=== PATIENT | female | born 1960 | race Caucasian/White ===

== ENCOUNTER 2021-03-12 19:16 | Emergency (ER) | payer OTHER ==
[2021-03-12 23:12] LABS: HEMOGLOBIN 14.4 gm/dl (12.3-15.3); RED BLOOD COUNT 4.76 M/UL (4.00-5.10); WHITE BLOOD COUNT 6.5 K/UL (4.5-11.0)
== END 2021-03-13 04:00 | disposition home or self-care (01) ==
LOC: ER1 19:16
PROVIDERS: Physician Assistant
DX: H92.02 Otalgia, left ear (principal); I10 Essential (primary) hypertension; J44.9 Chronic obstructive pulmonary disease, unspecified; Z90.89 Acquired absence of other organs; Z88.0 Allergy status to penicillin
CPT/HCPCS: 70450; 83605; 85025; 85652; 86140; 99283

== ENCOUNTER 2021-08-03 12:28 | Inpatient (IN) | payer OTHER ==
[~2021-08-03] VITALS: Ht 149.9 cm; Wt 49.9 kg
[2021-08-03 13:05] LABS: HEMOGLOBIN 14.1 gm/dl (12.3-15.3); RED BLOOD COUNT 4.79 M/UL (4.00-5.10)
[2021-08-03 13:30] LABS: BUN/CREATININE RATIO 24 (0-10)
[2021-08-03] MEDS ORDERED: NORVASC10 MG PO (14:54)
[2021-08-03] MEDS ORDERED: ELIQUIS5 MG PO (14:54)
[2021-08-03] MEDS ORDERED: SYMBICORT 16010.2 GM INH (14:54)
[2021-08-03] MEDS ORDERED: IBUPROFEN600 MG PO (14:55)
[2021-08-03] MEDS ORDERED: LOPRESSOR50 MG PO (14:55)
[2021-08-03] MEDS ORDERED: FAMOTIDINE20 MG PO (14:55)
[2021-08-03] MEDS ORDERED: CLARITIN10 MG PO (14:56)
[2021-08-03] MEDS ORDERED: VITAMIN D250 MCG PO (14:56)
[2021-08-03] MEDS ORDERED: PRAVASTATIN SOD80 MG PO (14:56)
[2021-08-03] MEDS ORDERED: PROAIR HFA8.5 GM INH (15:50)
[2021-08-03] MEDS ORDERED: ALBUTEROL1.25 MG/3 INH (15:51)
[2021-08-03] MEDS ORDERED: SPIRIVA HANDIH18 MCG INH (15:51)
[2021-08-03] MEDS ORDERED: ASPIRIN EC81 MG PO (15:51)
[2021-08-03] MEDS ORDERED: MULTI-VITAMIN1 EACH PO (15:52)
[2021-08-04 05:34] LABS: HEMOGLOBIN 12.9 gm/dl (12.3-15.3); RED BLOOD COUNT 4.43 M/UL (4.00-5.10); WHITE BLOOD COUNT 8.9 K/UL (4.5-11.0)
[2021-08-04 06:22] LABS: BUN/CREATININE RATIO 23 (0-10)
[2021-08-05 03:55] LABS: RED BLOOD COUNT 4.28 M/UL (4.00-5.10); WHITE BLOOD COUNT 9.6 K/UL (4.5-11.0)
[2021-08-05 04:29] LABS: BUN/CREATININE RATIO 30 (0-10)
[2021-08-06 07:31] LABS: HEMOGLOBIN 12.9 gm/dl (12.3-15.3); RED BLOOD COUNT 4.27 M/UL (4.00-5.10); WHITE BLOOD COUNT 9.5 K/UL (4.5-11.0)
[2021-08-06 07:50] LABS: BUN/CREATININE RATIO 42 (0-10)
[2021-08-06] MEDS ORDERED: MEDROL4 MG PO (10:10)
[2021-08-06] MEDS ORDERED: OMNICEF 300 MG300 MG PO (10:14)
== END 2021-08-06 16:47 | disposition home or self-care (01) | DRG 193 ==
LOC: ER1 12:28 → CDU 14:42 → PROG CARE 14:42
PROVIDERS: Emergency Medicine; Physician Assistant; ADMIT Internal Medicine
PROC: 5A09357 Assistance with Respiratory Ventilation, Less than 24 Consecutive Hours, Continuous Positive Airway Pressure (ICD-10-PCS; principal; 2021-08-03)
DX: J15.9 Unspecified bacterial pneumonia (principal); J96.22 Acute and chronic respiratory failure with hypercapnia; J96.21 Acute and chronic respiratory failure with hypoxia; N30.00 Acute cystitis without hematuria; Z20.822 Contact with and (suspected) exposure to COVID-19; J43.9 Emphysema, unspecified; R00.0 Tachycardia, unspecified; F41.9 Anxiety disorder, unspecified; F17.210 Nicotine dependence, cigarettes, uncomplicated; I73.9 Peripheral vascular disease, unspecified; I10 Essential (primary) hypertension; E78.5 Hyperlipidemia, unspecified; Z99.81 Dependence on supplemental oxygen; Z79.82 Long term (current) use of aspirin; Z90.49 Acquired absence of other specified parts of digestive tract; Z88.0 Allergy status to penicillin; Z82.49 Family history of ischemic heart disease and other diseases of the circulatory system
CPT/HCPCS: 0240U; 36415; 36600; 71045; 80048; 80053; 81001; 82550; 82553; 82803; 83605; 83874; 83880; 84484; 85025; 87040; 87070; 87086; 87205; 93005; 94640; 94660; 94664; 94760; 96374; 96375; 96376; 97161; 97165; 99285; J0456; J0696; J1650; J2930; J7030; Q9967